=== PATIENT | female | born 1985 | race Caucasian/White ===

== ENCOUNTER 2017-04-18 19:47 | Emergency (ER) | payer OTHER ==
[2017-04-18 20:22] VITALS: BP 125/78; PULSE 93; TEMP 97.8; BMI 30.4
[2017-04-18 20:38] LABS: BASO # 0.1 #; BASO % 0.6 % (0-2.0); EOS # 0.1 #; LYMPH # 1.9; MCH 31.3 pg (25.7-33.7); MCHC 34.1 g/dl (32.0-36.0); MEAN CELL VOLUME 91.9 fl (80-96); MEAN PLT VOLUME 8.4 fl (7.5-11.1); MONO # 0.6 #; NEUT # 6.9 #; NEUT % 72.2 % (42.8-82.8); PLATELET COUNT 257 K/MM3 (134-434); RDW 13.3 % (11.6-15.6); WHITE BLOOD COUNT 9.6 K/mm3 (4.0-10.0)
--- NOTE | 2017-04-18 20:41 | PDOC ---
History of Present Illness - General Chief Complaint: Chest Pain Stated Complaint: CHEST PAIN Time Seen by Provider: 04/18/17 20:39 History Source: Patient Exam Limitations: No Limitations - History of Present Illness Initial Comments: 04/18/17 22:41 31f with no pmh presents with left sided chest pain radiating arounf shoulder reproducible on palpation, exacerbated by deep inspiration and raising hands about shoulder level. Similar episode 2 weeks ago, went to different ER and was diagnosed with musculoskeletal pain. Also complains of dizziness associated with occasional vision turning to black. Denies shortness of breath, nausea, vomiting, abd pain, pain on excertion, leg swelling or sick contact. no cough, fevers. Past History - Past Medical History Allergies/Adverse Reactions: Allergies Allergy/AdvReac Type Severity Reaction Status Date / Time No Known Allergies Allergy Verified 04/18/17 20:12 Home Medications: Ambulatory Orders No Home Medications 0 dose .ROUTE UTDICT 09/24/13 COPD: No - Reproductive History (#): 5 Para: 3 Therapeutic (s) & number: Yes (ectopic) - Immunization History Immunization Up to Date: Yes - Suicide/Smoking/Psychosocial Hx Smoking History: Current some day smoker Have you smoked in the past 12 months: Yes Number of Cigarettes Smoked Daily: 5 Information on smoking cessation initiated: No 'Breaking Loose' booklet given: 09/24/13 Hx Alcohol Use: No Substance Use Type: None Review of Systems - Review of Systems Able to Perform ROS?: Yes Is the patient limited [place] proficient: No Constitutional: No: Symptoms Reported HEENTM: Yes: Blurred Vision. No: Symptoms Reported Respiratory: No: Symptoms reported Cardiac (ROS): Yes: See HPI ABD/GI: No: Symptoms Reported : No: Symptoms Reported Musculoskeletal: No: Symptoms Reported Integumentary: No: Symptoms Reported Neurological: No: Symptoms reported All Other Systems: Reviewed and Negative *Physical Exam - Vital Signs Last Vital Signs Temp Pulse Resp BP Pulse Ox 97.8 F 93 H 18 125/78 100 04/18/17 20:15 04/18/17 20:15 04/18/17 20:15 04/18/17 20:15 04/18/17 20:15 - Physical Exam General Appearance: Yes: Nourished, Appropriately Dressed. No: Apparent Distress HEENT: positive: EOMI, KRISTINE Neck: negative: Tender Respiratory/Chest: positive: Chest Tender, Lungs Clear, Normal Breath Sounds Cardiovascular: positive: Regular Rhythm, Regular Rate, S1, S2 Gastrointestinal/Abdominal: positive: Normal Bowel Sounds, Flat, Soft. negative : Tender Musculoskeletal: positive: Normal Inspection, Other (intercoastal pain on palpation, pleuritic chest pain on inspiration and riasing arms). negative: CVA Tenderness Extremity: positive: Normal Capillary Refill Integumentary: positive: Normal Color, Dry, Warm Neurologic: positive: Fully Oriented, Alert, Normal Mood/Affect, Normal Response , Motor Strength 08/24 ED Treatment Course - LABORATORY CBC & Chemistry Diagram: 04/18/17 20:21 04/18/17 20:21 - ADDITIONAL ORDERS Additional order review: Laboratory Results 04/18/17 04/18/17 04/18/17 20:21 20:21 20:21 PT with INR 11.30 INR 1.00 Sodium 139 Potassium 4.0 Chloride 106 Carbon Dioxide 26 Anion Gap 7 L BUN 11 D Creatinine 0.7 D Creat Clearance w eGFR > 60 Random Glucose 108 H D Calcium 9.2 Total Bilirubin 0.5 AST 18 D ALT 51 D Alkaline Phosphatase 75 Creatine Kinase 141 Troponin I < 0.02 Total Protein 8.3 H Albumin 4.1 Serum , Qual Negative 04/18/17 20:21 RBC 4.38 MCV 91.9 MCHC 34.1 RDW 13.3 MPV 8.4 Neutrophils % 72.2 Lymphocytes % 19.8 Monocytes % 6.4 Eosinophils % 1.0 Basophils % 0.6 - RADIOLOGY Radiology Studies Ordered: Category Date Time Status CHEST PA & LAT [RAD] Stat Radiology 04/18/17 21:09 Taken - Medications Given in the ED: ED Medications Discontinued Medications Generic Name Dose Route Start Last Admin Trade Name Freq PRN Reason Stop Dose Admin Ibuprofen 600 mg 04/18/17 21:47 04/18/17 22:04 Motrin - PO 04/18/17 21:48 600 mg ONCE ONE Administration Medical Decision Making - Medical Decision Making 04/18/17 22:50 All labs, vital wnl. CXR wnl. This is likely msk pain. costochondritis vr pleuritic pain. Patient given motrin. Reassess D/C *DC/Admit/Observation/Transfer Diagnosis at time of Disposition: Costochondritis, acute - Discharge Dispostion Disposition: HOME Condition at time of disposition: Improved Admit: No - Referrals Referrals: Fransico Chamorro MD [Staff Physician] - - Patient Instructions Printed Discharge Instructions: DI for Atypical Chest Pain, DI for Costochondritis Additional Instructions: Come back to the Emergency Department for any new, worsening or concerning symptom. Please follow up with your primary physician within the next 2-3 days. - Post Discharge Activity
[2017-04-18 20:54] LABS: PROTHROMBIN TIME (PATIENT) 11.3 SEC (9.98-11.88)
[2017-04-18 21:00] LABS: ALBUMIN 4.1 g/dl (3.4-5.0); ANION GAP 7 (8-16); BILIRUBIN,TOTAL 0.5 mg/dL (0.2-1.0); CALCIUM 9.2 mg/dL (8.5-10.1); CO2 26 mmol/L (21-32); CREATININE 0.7 mg/dL (0.55-1.02); GLUCOSE,RANDOM 108 mg/dL (74-106); SGOT/AST 18 U/L (15-37); SGPT/ALT 51 U/L (12-78); TOT PROT 8.3 g/dl (6.4-8.2)
[2017-04-18 21:03] LABS: ALK PHOS 75 U/L (45-117); CPK 141 IU/L (26-192); TROPONIN I < 0.02 ng/ml (0.00-0.05)
--- NOTE | 2017-04-18 21:30 | PDOC ---
Attending Attestation - Resident Resident Name: AissatouSterling - ED Attending Attestation I have performed the following: I have examined & evaluated the patient, The case was reviewed & discussed with the resident, I agree w/resident's findings & plan, Exceptions are as noted - HPI HPI: 04/18/17 21:25 Healthy 31-year-old female with no severe past medical history presents with intermittent left chest discomfort for the last few days, lasts for several hours at a time and unrelated to position, by mouth intake, or exertion. No cough, some palpitations and lightheadedness, but no fevers or chills. Has not taken anything for the pain, was recently seen at outside hospital ED and discharged with musculoskeletal pain diagnosis, presents for reevaluation today. No PE risk factors, no symptoms of DVT, no personal or family history of early heart disease, sudden cardiac , or hypercoagulability. Active smoker, admits to cocaine use 9 years ago but none since then. - Physicial Exam PE: 04/18/17 21:27 Vital signs stable, O2 sat is normal, heart rate on my examination is 84 Exam is normal, S1 and S2 with clear lungs No edema or calf tenderness - Medical Decision Making 04/18/17 21:27 Patient seen and evaluated with the resident. I agree with the overall evaluation, assessment, and management with the following summary of visit: 31-year-old female with atypical left-sided chest discomfort, normal vital signs and without significant red flags on history or physical exam. Possibly musculoskeletal versus pleuritic inflammation, low risk for ACS (heart score zero) or PE. Labs are within normal limits including troponin EKG is nonischemic Will check chest x-ray reassurance, referral to hospital clinic to establish PCP care Heart Score/ECG Review - History History: Slightly suspicious - Electrocardiogram EKG: Normal - Age Age: </= 45 - Risk Factors Based on the list above the patient has:: No risk factors known - Troponin Troponin: </= normal limit - Score Heart Score - Total: 0 #1 ECG reviewed & interpreted by me at: 19:54 General ECG Interpretation: Sinus Rhythm, Normal Rate (94), Normal Intervals ( qtc 477), No acute ischemic changes (V3 artifact, sub-mm HI depression isolated V4)
[2017-04-18] MEDS ORDERED: IBUPROFEN 600 MG TABLET (FP) PO ONE ×2 (21:47→22:00)
--- NOTE | 2017-04-19 09:45 | EKG ---
Test Reason : Blood Pressure : / mmHG Vent. Rate : 094 BPM Atrial Rate : 094 BPM P-R Int : 132 ms QRS Dur : 082 ms QT Int : 382 ms P-R-T Axes : 053 063 033 degrees QTc Int : 477 ms NORMAL SINUS RHYTHM NONSPECIFIC ST ABNORMALITY ABNORMAL ECG NO PREVIOUS ECGS AVAILABLE Confirmed by RONI SAENZ MD ([id number]) on 04/19/2017 9:45:30 AM Referred By: Confirmed By:RONI SAENZ MD
== END 2017-04-18 23:35 | disposition home or self-care (01) ==
LOC: JER 19:47
DX: M94.0 Chondrocostal junction syndrome [Tietze] (principal)
CPT/HCPCS: 36415; 71020-TC; 80053; 82550; 84484; 84703; 85025; 85610; 93005; 93010; 99283-25